=== PATIENT | female | born 1960 | race Two or more races ===

== ENCOUNTER 2020-03-10 14:09 | Inpatient (IN) | payer OTHER ==
[~2020-03-10] VITALS: Ht 154.9 cm; Wt 68.9 kg
[2020-04-01] MEDS ORDERED: ENALAPRIL MALEA10 MG PO (08:47)
[2020-04-01] MEDS ORDERED: MELATONIN10 MG PO (08:48)
[2020-04-01] MEDS ORDERED: ZYRTEC10 M3 PO (08:48)
[2020-04-01] MEDS ORDERED: VITAMIN C500 M6 PO (08:49)
[2020-04-09] MEDS ORDERED: HYOSCYAMINE0.125 M1 SL (17:07)
[2020-04-09] MEDS ORDERED: GABAPENTIN300 MG PO (17:07)
[2020-04-09] MEDS ORDERED: KETO10TA2 PO (17:08)
[2020-04-10] MEDS ORDERED: Neurin-Sl Tablet Sl SL (11:43)
[2020-04-10] MEDS ORDERED: PYRIDOXINE HCL100 MG PO (11:43)
[2020-04-10] MEDS ORDERED: OXYC1TAB9 PO (11:43)
[2020-04-10] MEDS ORDERED: PANTOPRAZOLE SO40 MG PO (11:50)
== END 2020-04-10 12:57 | disposition home or self-care (01) | DRG 331 ==
LOC: SURH 04-07 11:15 → O/R 04-07 11:22 → SURH 04-07 11:22
PROVIDERS: ADMIT Surgery; ATTEND Surgery
PROC: 0DJD8ZZ Inspection of Lower Intestinal Tract, Via Natural or Artificial Opening Endoscopic (ICD-10-PCS; 2020-04-07)
PROC: 0DTN4ZZ Resection of Sigmoid Colon, Percutaneous Endoscopic Approach (ICD-10-PCS; principal; 2020-04-07 11:15)
DX: K57.32 Diverticulitis of large intestine without perforation or abscess without bleeding (principal); D64.9 Anemia, unspecified

== ENCOUNTER 2022-04-03 11:30 | Inpatient (IN) | payer OTHER ==
[~2022-04-03] VITALS: Ht 152.4 cm; Wt 70.3 kg
[~2022-04-03 11:30] MED LIST: ENALAPRIL MALEA10 MG PO; GABAPENTIN300 MG PO; HYOSCYAMINE0.125 M1 SL; KETO10TA2 PO; MELATONIN10 MG PO; Neurin-Sl Tablet Sl SL; OXYC1TAB9 PO; PANTOPRAZOLE SO40 MG PO; PYRIDOXINE HCL100 MG PO; VITAMIN C500 M6 PO; ZYRTEC10 M3 PO
[2022-04-05] MEDS ORDERED: DICYCLOMINE HCL20 MG (14:39)
[2022-04-05] MEDS ORDERED: VITAMIN D31250 MCG (14:41)
[2022-04-05] MEDS ORDERED: GASTRACE CAPSU1 EACH (14:41)
[2022-04-05] MEDS ORDERED: METOPROLOL SUCC25 MG (14:41)
[2022-04-05] MEDS ORDERED: OXYBUTYNIN CHLOR5 MG (14:41)
[2022-04-05] MEDS ORDERED: BETAMETHASONE D15 GM (14:41)
[2022-04-05] MEDS ORDERED: AMLODIPINE BESYL5 MG (14:41)
[2022-04-06] MEDS ORDERED: KETO10TA2 PO (17:40)
[2022-04-06] MEDS ORDERED: INTESTINEX680 M1 PO (17:40)
== END 2022-04-06 22:48 | disposition home or self-care (01) | DRG 395 ==
LOC: O/R 04-05 06:15 → SURG 04-05 11:30 → SURH 04-05 20:28
PROVIDERS: ADMIT Surgery; ATTEND Surgery
PROC: 0DBQ8ZZ Excision of Anus, Via Natural or Artificial Opening Endoscopic (ICD-10-PCS; 2022-04-05)
PROC: 0DJD8ZZ Inspection of Lower Intestinal Tract, Via Natural or Artificial Opening Endoscopic (ICD-10-PCS; 2022-04-05)
PROC: 3E0T3BZ Introduction of Anesthetic Agent into Peripheral Nerves and Plexi, Percutaneous Approach (ICD-10-PCS; 2022-04-05)
PROC: 0DBP8ZZ Excision of Rectum, Via Natural or Artificial Opening Endoscopic (ICD-10-PCS; principal; 2022-04-05 10:45)
DX: D3A.026 Benign carcinoid tumor of the rectum (principal); K64.4 Residual hemorrhoidal skin tags; Z20.822 Contact with and (suspected) exposure to COVID-19